=== PATIENT | female | born 1955 | race Caucasian/White ===

== ENCOUNTER 2022-02-07 22:38 | Inpatient (IN) | payer MEDICARE ==
[2022-02-07] MEDS ORDERED: SODIUM CHLORIDE 0.9% 1,000 ML IV ONE (22:57)
[2022-02-07] MEDS ORDERED: DIPH,PERTUS(ACELL)TETVAC-LF 0.5 ML VIAL IM ONE (22:59)
[2022-02-07] MEDS ORDERED: ONDANSETRON 4 MG/2 ML VIAL IVP STA (22:59)
[2022-02-07] MEDS ORDERED: MORPHINE SULFATE 4 MG/ML SYRINGE IV STA (22:59)
--- NOTE | 2022-02-07 23:09 | ED ---
Fall HPI - General Chief Complaint: Fall Stated Complaint: Fell,right arm pain Time Seen by Provider: 02/07/22 22:53 Source: patient Mode of arrival: wheelchair - History of Present Illness Initial Comments: This is a pleasant 67-year-old female who tripped and fell on outstretched right hand. Patient complaining of pain to the wrist and forearm area. Patient does have a laceration to the ulnar aspect of the forearm with some bleeding. Distal neurovascular status in intact otherwise. Injury occurred just prior to arrival. There was no head or neck injury. No headache, no fever or chills, no changes in vision or hearing, no sore throat or difficulty with speech, no neck pain, no chest pain or shortness of breath, no abdominal pain, no nausea or vomiting, no changes in urination or bowel movements, no numbness or tingling, no skin rashes or lesions. MD Complaint: fall - Related Data Allergies Allergy/AdvReac Type Severity Reaction Status Date / Time No Known Allergies Allergy Verified 02/07/22 22:44 Review of Systems ROS Statement: Those systems with pertinent positive or pertinent negative responses have been documented in the HPI. ROS Other: All systems not noted in ROS Statement are negative. Past Medical History Past Medical History: Hyperlipidemia, Hypertension History of Any Multi-Drug Resistant Organisms: None Reported Past Surgical History: Orthopedic Surgery Past Psychological History: No Psychological Hx Reported Smoking Status: Former smoker Past Alcohol Use History: Occasional Past Drug Use History: None Reported General Exam - General Exam Comments Initial Comments: Nontoxic-appearing 67-year-old female in moderate distress secondary to right arm injury. Limitations: no limitations General appearance: alert, in distress Head exam: Present: other (Patient has a superficial abrasion noted to the right supraorbital area. Normocephalic atraumatic otherwise) Eye exam: Present: normal appearance, PERRL, EOMI. Absent: scleral icterus, conjunctival injection, periorbital swelling ENT exam: Present: normal exam, mucous membranes moist, normal external ear exam. Absent: mucous membranes dry Neck exam: Present: normal inspection, full ROM. Absent: tenderness, meningismus, lymphadenopathy Respiratory exam: Present: normal lung sounds bilaterally. Absent: respiratory distress, wheezes, rales, rhonchi, stridor, chest wall tenderness, accessory muscle use, decreased breath sounds, prolonged expiratory Cardiovascular Exam: Present: regular rate, normal rhythm, normal heart sounds. Absent: systolic murmur, diastolic murmur, rubs, gallop, clicks GI/Abdominal exam: Present: soft, normal bowel sounds. Absent: distended, tenderness, guarding, rebound, rigid Extremities exam: Present: normal inspection, full ROM, normal capillary refill. Absent: tenderness, pedal edema, joint swelling, calf tenderness Right Shoulder Exam: Present: normal inspection, full ROM. Absent: tenderness, swelling Upper Arm exam: Present: normal inspection. Absent: tenderness, swelling Elbow exam: Present: normal inspection. Absent: full ROM, tenderness Forearm Wrist exam: Present: tenderness, laceration, other (Patient has a laceration to the volar aspect of the forearmdistal, appears to be consistent with an open fracture). Absent: full ROM, ecchymosis, tenderness over anatomical snuff box Hand Wrist exam: Present: tenderness, swelling, deformity, crepitus. Absent: full ROM Neuro motor exam: Present: thumb opposition intact, thumb IP flexion intact, thumb adduction intact, fingers 2-5 abduction intact Neurosensory exam: Present: radial nerve intact, ulnar nerve intact, median n erve intact Vascular: Present: normal capillary refill. Absent: vascular compromise, pulse deficit radial art, pulse deficit ulnar art Back exam: Present: normal inspection. Absent: rash noted Neurological exam: Present: alert, oriented X3, CN II-XII intact. Absent: altered, motor sensory deficit Psychiatric exam: Present: normal affect, normal mood Skin exam: Present: warm, dry, intact, normal color. Absent: rash Course Vital Signs 02/07/22 02/07/22 22:44 23:59 Temperature 97.7 F 98.0 F Pulse Rate 80 82 Respiratory 16 18 Rate Blood Pressure 155/81 152/87 O2 Sat by Pulse 98 99 Oximetry - Reevaluation(s) Reevaluation #1: 02/08/22 00:24 Patient reevaluated and states that she only has pain when she moves the arm. Denies any distal paresthesias. - Consultations Consultation #1: This case was discussed in detail with the on-call orthopedic physician, Dr. Fabian. He accepts admission patient to his service. He recommended cleaning the wound, splinting the patient, continuing prophylactic antibiotics. Patient will need orthopedic surgery in the morning. Procedures - Orthopedic Fracture Reduction Fracture #1 Consent Obtained: verbal consent Side: right Fracture Reduction Location: radius, ulna Analgesia: none Technique: finger traps Post Reduction X-rays Demonstrate: acceptable reduction Post-Reduction Neuro Exam: intact Post-Reduction Vascular Exam: intact Splint Applied: Yes Patient Tolerated Procedure: well - Orthopedic Splinting/Casting Injury #1 Side: right Upper Extremity Injury Location: long arm Upper Extremity Immobilizer: sugar tong splint Lower Extremity Immobilizer: Hany wrap, fiberglass cast Additional Comments: Seong applied, neurovascular status intact both pre-and post-application Medical Decision Making - Medical Decision Making Patient presents with isolated injury of the right wrist and forearm, consistent with open fracture. Ancef 2 g IV piggyback ordered. Tetanus ordered. Pain medication. X-rays, planned for reevaluation and orthopedic consultation Patient admitted to orthopedics, Dr. Banks. [facility] group consult for medical management. Patient will have surgery at 9 AM. Also contacted anesthesiology. Patient admitted for open fracture the right forearm. Prophylactic antibiotics were given. Ancef 2 g IV piggyback here in the ER. CT of the brain and cervical spine were negative for any acute pathology. I did review these films myself. Wounds were cleansed thoroughly with normal saline. Dressing was applied underneath the splint. Patient was placed in a sugar tong splint. Neurovascular function was intact. Patient was told to return to the ER for any signs or symptoms worsen. Told to return immediately if any other problems arise. All questions answered. Treatment plan discussed. Patient in agreement Every effort has been made to ensure accuracy of this dictation. However, due to the limitations of electronic medical records and dictation devices, errors in charting still occur. Note that the patient's previous surgery was done in 2012 at [facility] in [place] by Dr. Alessio Domingo Security Agent Dr. Infante - Lab Data Result diagrams: 02/08/22 01:02 02/08/22 01:02 Lab Results 02/08/22 02/08/22 02/08/22 Range/Units 01:01 01:02 01:02 WBC 14.8 H (3.8-10.6) k/uL RBC 4.40 (3.80-5.40) m/uL Hgb 14.0 (11.4-16.0) gm/dL Hct 41.3 (34.0-46.0) % MCV 93.8 (80.0-100.0) fL MCH 31.9 (25.0-35.0) pg MCHC 34.0 (31.0-37.0) g/dL RDW 12.7 (11.5-15.5) % Plt Count 239 (150-450) k/uL MPV 7.5 Neutrophils % 88 % Lymphocytes % 7 % Monocytes % 4 % Eosinophils % 0 % Basophils % 0 % Neutrophils # 13.0 H (1.3-7.7) k/uL Lymphocytes # 1.0 (1.0-4.8) k/uL Monocytes # 0.5 (0-1.0) k/uL Eosinophils # 0.0 (0-0.7) k/uL Basophils # 0.1 (0-0.2) k/uL PT 11.1 (9.0-12.0) sec INR 1.0 (<1.2) APTT 22.3 (22.0-30.0) sec Sodium (137-145) mmol/L Potassium (3.5-5.1) mmol/L Chloride (98-107) mmol/L Carbon Dioxide (22-30) mmol/L Anion Gap mmol/L BUN (7-17) mg/dL Creatinine (0.52-1.04) mg/dL Est GFR (CKD-EPI)AfAm (>60 ml/min/1.73 sqM) Est GFR (CKD-EPI)NonAf (>60 ml/min/1.73 sqM) Glucose (74-99) mg/dL Calcium (8.4-10.2) mg/dL Total Bilirubin (0.2-1.3) mg/dL AST (14-36) U/L ALT (4-34) U/L Alkaline Phosphatase (38-126) U/L Total Protein (6.3-8.2) g/dL Albumin (3.5-5.0) g/dL Blood Type B Negative Blood Type Confirm Blood Type Recheck No Previous Record Bld Type Recheck Status CABO Indicated Antibody Screen NEGATIVE Spec Expiration Date 02/11/2022 - 230002/08/22 02/08/22 Range/Units 01:02 01:18 WBC (3.8-10.6) k/uL RBC (3.80-5.40) m/uL Hgb (11.4-16.0) gm/dL Hct (34.0-46.0) % MCV (80.0-100.0) fL MCH (25.0-35.0) pg MCHC (31.0-37.0) g/dL RDW (11.5-15.5) % Plt Count (150-450) k/uL MPV Neutrophils % % Lymphocytes % % Monocytes % % Eosinophils % % Basophils % % Neutrophils # (1.3-7.7) k/uL Lymphocytes # (1.0-4.8) k/uL Monocytes # (0-1.0) k/uL Eosinophils # (0-0.7) k/uL Basophils # (0-0.2) k/uL PT (9.0-12.0) sec INR (<1.2) APTT (22.0-30.0) sec Sodium 142 (137-145) mmol/L Potassium 3.6 (3.5-5.1) mmol/L Chloride 110 H (98-107) mmol/L Carbon Dioxide 24 (22-30) mmol/L Anion Gap 8 mmol/L BUN 15 (7-17) mg/dL Creatinine 0.81 (0.52-1.04) mg/dL Est GFR (CKD-EPI)AfAm 86 (>60 ml/min/1.73 sqM) Est GFR (CKD-EPI)NonAf 75 (>60 ml/min/1.73 sqM) Glucose 116 H (74-99) mg/dL Calcium 8.6 (8.4-10.2) mg/dL Total Bilirubin 0.5 (0.2-1.3) mg/dL AST 23 (14-36) U/L ALT 16 (4-34) U/L Alkaline Phosphatase 86 (38-126) U/L Total Protein 6.6 (6.3-8.2) g/dL Albumin 3.9 (3.5-5.0) g/dL Blood Type Blood Type Confirm B Negative Blood Type Recheck Bld Type Recheck Status Antibody Screen Spec Expiration Date - Radiology Data Radiology results: report reviewed, image reviewed Mid shaft, displaced, angulated radius and all of fracture as described or radiology. Previous surgical hardware seen on x-ray. Critical Care Time Critical Care Time: Yes (35) Critical Care Time: Multiple calls to orthopedic specialty, anesthesiology, reevaluation patient's condition. Evaluation of patient's response to treatment. Disposition Clinical Impression: Open fracture of right forearm, Facial abrasion, Closed head injury, Abrasion, left great toe, initial encounter Disposition: ADMITTED IP TO THIS [facility] Condition: Stable Referrals: Nonstaff,Physician [Primary Care Provider] - 1-2 days Time of Disposition: 00:45 Decision to Admit Reason: Admit from EC Decision Time: 00:45
--- NOTE | 2022-02-07 23:17 | XR ---
EXAMINATION TYPE: XR forearm RT DATE OF EXAM: 02/07/2022 COMPARISON: NONE HISTORY: Pain TECHNIQUE: 2 views FINDINGS: There are transverse fractures between the middle and distal thirds of the radius and ulna. There is 100% of lateral offset of the distal fragments. Carpal bones are intact. Elbow joint appear s intact. There is plate with screws fixing an old fracture distal radius. IMPRESSION: Acute displaced fractures distal radius and ulna.
[2022-02-08] MEDS ORDERED: MORPHINE SULFATE 4 MG/ML SYRINGE IV STA (00:11)
[2022-02-08] MEDS ORDERED: SODIUM CHLORIDE 0.9% 1,000 ML IV STA (00:22)
[2022-02-08] MEDS ORDERED: MORPHINE SULFATE 4 MG/ML SYRINGE IV PRN (01:03)
[2022-02-08] MEDS ORDERED: ONDANSETRON 4 MG/2 ML VIAL IVP PRN (01:03)
[2022-02-08] MEDS ORDERED: NALOXONE 0.4 MG/ML 1 ML VIAL IV PRN (01:03)
[2022-02-08] MEDS ORDERED: BACITRACIN OINT 1 EACH PACKET TOPICAL ONE (01:08)
[2022-02-08 01:14] LABS: Basophils # (A) 0.1 k/uL (0-0.2); Basophils % (A) 0 %; Eosinophils % (A) 0 %; HCT 41.3 % (34.0-46.0); Lymphocytes % (A) 7 %; MCH 31.9 pg (25.0-35.0); MCV 93.8 fL (80.0-100.0); Mean Platelet Volume 7.5; Monocytes # (A) 0.5 k/uL (0-1.0); Monocytes % (A) 4 %; Neutrophils % (A) 88 %; Platelet Count 239 k/uL (150-450); RDW 12.7 % (11.5-15.5); WBC 14.8 k/uL (3.8-10.6)
[2022-02-08 01:24] LABS: Albumin 3.9 g/dL (3.5-5.0); Calcium 8.6 mg/dL (8.4-10.2); Potassium 3.6 mmol/L (3.5-5.1); Total Bilirubin 0.5 mg/dL (0.2-1.3); Total Protein 6.6 g/dL (6.3-8.2)
[2022-02-08 01:31] LABS: Partial Thromboplastin Time 22.3 sec (22.0-30.0); Prothrombin Time 11.1 sec (9.0-12.0)
[2022-02-08] MEDS: SODIUM CHLORIDE 0.9% 1,000 ML IV SCH ×3 (01:53→20:51)
--- NOTE | 2022-02-08 02:24 | CT ---
EXAM: CT Head Without Intravenous Contrast CLINICAL HISTORY: ITS.REASON CT Reason: Head injury/trauma TECHNIQUE: Axial computed tomography images of the head/brain without intravenous contrast. CTDI is 45.2 mGy and DLP is 1044 mGy-cm. This CT exam was performed using one or more of the following dose reduction techniques: automated exposure control, adjustment of the mA and/or kV according to patient size, and/or use of iterative reconstruction technique. COMPARISON: No previous studies. FINDINGS: Brain: Small vessel disease of aging. No hemorrhage. Ventricles: The ventricular system is age appropriate. Bones/joints: Unremarkable. No acute fracture. Soft tissues: Unremarkable. Sinuses: Visualized sinuses are unremarkable. A 1 cm polyp versus mucous retention cyst left maxillary sinus. Mastoid air cells: Mastoid air cells are well pneumatized. IMPRESSION: 1. Age-related changes. 2. No acute intracranial pathology is noted. 3. If there is concern for etiology such as early acute lacunar infarcts, MRI imaging of the brain with diffusion-weighted sequences should be performed. EXAM: CT Cervical Spine Without Intravenous Contrast CLINICAL HISTORY: ITS.REASON CT Reason: Head injury/trauma TECHNIQUE: Axial computed tomography images of the cervical spine without intravenous contrast. CTDI is 15.3 mGy and DLP is 397.6 mGy-cm. This CT exam was performed using one or more of the following dose reduction techniques: automated exposure control, adjustment of the mA and/or kV according to patient size, and/or use of iterative reconstruction technique. COMPARISON: No previous studies. FINDINGS: Vertebrae: Visualized thoracic vertebral bodies are unremarkable. Gentle dextroscoliosis. There is a normal relationship of C1 and C2. 1 cm probable bone island left lamina of the T1 vertebral body. No acute fracture. Discs/spinal canal/neural foramina: Moderate to severe degenerative disc disease of the cervical spine. Transaxial images of the cervical spine reveals posterior facet hypertrophy and disc osteophyte complexes. No spinal canal stenosis. Soft tissues: Paraspinal and regional soft tissues are within normal limits. Lung apices: Minimal scarring at the lung apices. Other findings: Spinous processes are unremarkable. IMPRESSION: 1. Degenerative disc disease. 2. No acute injury to the cervical spine is detected.
[2022-02-08] MEDS ORDERED: LACTATED RINGERS 1,000 ML IV ONE ×2 (08:28→10:02)
[2022-02-08] MEDS ORDERED: FAMOTIDINE 20 MG/2 ML VIAL IV ONE (08:28)
[2022-02-08] MEDS ORDERED: MIDAZOLAM 2 MG/2 ML VIAL IV ONE (08:30)
[2022-02-08] MEDS ORDERED: fentaNYL (PF) 50 MCG/ML 2 ML AMP IVP ONE (08:30)
--- NOTE | 2022-02-08 08:45 | P.ANPRN ---
Procedure Note - Anesthesia - Nerve Block Performed Right Axillary Single Time Out Performed: Yes ([id number]) Date of Procedure: 02/08/22 Procedure Start Time: :29 Procedure Stop Time: 08:37 Location of Patient: Phase I Indication: Acute Post-Operative Pain, Requested by Surgeon Specifically requested for management of pain by DrKaley: Олег Banks Sedation Type: Sedate with meaningful contact maintained Preparation: Sterile Prep Position: Supine Catheter: None Needle Types: Pajunk Needle Gauge: 21 Ultrasound used to visualize needle placement: Yes Ultrasound used to observe medication spread: Yes Injectate: 0.5% Ropivacaine (see comment for volume) (40cc, 10cc each ulnar, radial, median, mskcut) Blood Aspirated: No Pain Paresthesia on Injection Noted: No Resistance on Injection: Normal Image Stored and Saved: Yes Events: Uneventful and Well Tolerated
[2022-02-08] MEDS ORDERED: SODIUM CHLORIDE 0.9% (PF) 10 ML VIAL ONE (09:02)
[2022-02-08] MEDS ORDERED: ePHEDrine 50 MG/ML 1 ML VIAL ONE (09:02)
[2022-02-08] MEDS ORDERED: ONDANSETRON 4 MG/2 ML VIAL ONE (09:02)
[2022-02-08] MEDS ORDERED: MIDAZOLAM 2 MG/2 ML VIAL ONE (09:02)
[2022-02-08] MEDS ORDERED: PROPOFOL 10 MG/ML 20 ML VIAL IV ONE (09:02)
[2022-02-08] MEDS ORDERED: ROPIVACAINE 5 MG/ML 30 ML VIAL ONE (09:02)
[2022-02-08] MEDS ORDERED: fentaNYL (PF) 50 MCG/ML 2 ML AMP ONE (09:02)
[2022-02-08] MEDS ORDERED: LIDOCAINE 2% INJ 20 MG/ML (2 ML VIAL) ONE (09:02)
[2022-02-08] MEDS ORDERED: DEXAMETHASONE SOD PHOSPHATE 10 MG/ML 1 ML VIAL ONE (09:02)
[2022-02-08] MEDS ORDERED: SODIUM CHLORIDE 0.9% 100 ML with ceFAZolin 2,000 MG IV ONE ×2 (09:07)
--- NOTE | 2022-02-08 09:09 | P.HPOR ---
History of Present Illness H&P Date: 02/09/22 Chief Complaint: Open fracture both bones of the right forearm Mrs. Daley is a 67 year old female who has had previous ORIF of her distal radius using a volar plate, who fell today onto her right upper extremity and sustained a both bones forearm fracture. She states that she missed the last step of her porch and fell onto concrete. She relates a history of imbalance of several years duration that she was referred to neurology in the past but did not follow through on the appointment. The fracture is located just distal to the radius plate and there is a 1 cm wound over the ulna fracture indicating an open injury. She was brought to ER and I was consulted for further evaluation and management. She denies any other injury from this fall. Review of Systems Constitutional: Denies chills, Denies fever Ears, nose, mouth and throat: Denies headache, Denies sore throat Cardiovascular: Denies chest pain, Denies shortness of breath Respiratory: Denies cough Gastrointestinal: Denies abdominal pain, Denies diarrhea, Denies nausea, Denies vomiting Genitourinary: Denies dysuria, Denies hematuria Musculoskeletal: Reports as per HPI Musculoskeletal: right: elbow pain, elbow stiffness, elbow swelling, wrist pain, wrist stiffness, wrist swelling Integumentary: Reports as per HPI Neurological: Denies numbness Psychiatric: Denies anxiety, Denies depression Endocrine: Denies fatigue, Denies weight change Past Medical History Past Medical History: Hyperlipidemia, Hypertension History of Any Multi-Drug Resistant Organisms: None Reported Past Surgical History: Orthopedic Surgery Past Psychological History: No Psychological Hx Reported Smoking Status: Former smoker Past Alcohol Use History: Occasional Past Drug Use History: None Reported Medications and Allergies Allergies Allergy/AdvReac Type Severity Reaction Status Date / Time No Known Allergies Allergy Verified 02/07/22 22:44 Physical Examination Exam is limited to the right upper extremity. A 1 cm laceration over the ulna fracture site is noted. There is no gross contamination of this wound. The forearm is angulated with apex ulnar angulation of 30 degrees. She is able to move fingers weakly and denies numbness or tingling in the fingers. A well healed volar incision is noted over the distal radius from presumable previous fixation of distal radius fracture. Elbow is nontender and without deformity. Hand has less than 2 sec capillary refill and good color. Results X-rays taken in the ER show an angulated and displaced fracture of the radial and ulnar shafts with soft tissue disruption around the ulnar fracture. The distal radius plate is in good position with 5 screws, the current fracture of the radius is just distal to this plate. Bone structure is within normal limits. - Labs Result Diagrams: 02/08/22 01:02 02/08/22 01:02 Assessment and Plan (1) Open fracture of forearm, type I or II Narrative/Plan: 1. Patient has been informed that optimal treatment is with surgery for irrigation of the wound within 24 hours, operative reduction and fixation which will require removal of the distal radius plate, preliminary cleansing of the wound in the ER, splint application and antibiotics. The operation will be performed in the morning. We have discussed risks and potential complications of this operation which are inclusive of, but not limited to: bleeding, in fection, scarring, discomfort, blood vessel and/or nerve damage, need for further surgery, malunion, nonunion, stiffness, hardware failure, further fracture, difficulty removing old plate, anesthesia risks, compartment syndrome, complex regional pain syndrome, loss of limb, , and other risks. She wishes to proceed and a consent form will be signed. 2. Patient will receive intravenous antibiotics (Kefzol 2 grams) in the ER and 2 more doses prior to discharge. Tetanus status was updated with administration of vaccine in the ER. 3. All questions from the patient and her were answered. Current Visit: Yes Status: Acute Priority: High Code(s): S52.90XB - UNSP FRACTURE OF UNSP FOREARM, INIT FOR OPN FX TYPE I/2 SNOMED Code(s): 18351656 Time with Patient: Less than 30
[2022-02-08] MEDS ORDERED: ceFAZolin 3,000 MG in SODIUM CHLORIDE 0.9% IRRIGATIO 3,000 ML IRRIGATION ONE (09:31)
--- NOTE | 2022-02-08 12:54 | P.OP ---
Date of Procedure: 02/08/22 Procedure(s) Performed: PREOPERATIVE DIAGNOSES: 1. Right forearm radial and ulnar shaft fractures 2. Grade I open fracture ulnar shaft 3. Status post 2013 distal radius fracture fixation with volar plate POSTOPERATIVE DIAGNOSES: 1. Right forearm radial and ulnar shaft fractures, comminuted and displaced 2. Grade I open fracture ulnar shaft 3. Status post 2013 distal radius fracture fixation with volar plate PROCEDURES PERFORMED: 1. Right forearm radial and ulnar shaft fractures open reduction and internal fixation 2. Irrigation of open fracture wound of ulnar fracture 3. Removal of distal radial volar plate ANESTHESIA: Gen. and regional block for post operative pain control WHITE SPOOLER: None COMPLICATIONS: None ESTIMATED BLOOD LOSS: 100 mL. DISPOSITION: To post-anesthesia care unit INDICATIONS: Umm is a 67 -year-old female who sustained a left forearm both taisha moira forearm fracture last night. She has a less than 1 cm wound over the ulnar fracture site indicating a inside out type injury amounting to a grade 1 open fracture. She received intravenous antibiotics in the emergency room along with local wound care including irrigation and initially in the ER. Today she comes to the operating room for definitive management of the fractures and formal irrigation and debridement of the wound. The patient has minimal symptoms relating to the elbow or wrist. I described the steps of the operation and potential risks and complications as being inclusive of, but not limited to: Bleeding, infection, scarring, discomfort, blood vessel and/or nerve damage, malunion, nonunion, stiffness, weakness, hardware irritation, nerve palsy, and other risks, please see the preoperative dictation for further discussion. The patient is aware these risks and wishes to proceed with surgery. The consent form has been signed. PROCEDURE: After appropriate consent was obtained, the patient was taken to the operating room placed in the supine position. Anesthesia was initiated, and after confirmation of adequate anesthesia, the patient was carefully positioned. Regional anesthetic block was given preoperatively. Care was taken to make sure that all pressure points were adequately padded. Prepping and draping were completed in the usual aseptic fashion using chlorhexidine prep. Timeout was called, confirming patient identity, side, procedure, and administration of antibiotics. The open fracture wound was addressed first by making an incision on either side of the open fracture wound and exposing the area better for irrigation. Pulse lavage was performed approximately 1.5 L in and around the fracture site and wound. The wound was noncontaminated and appeared to the typical inside out type injury. Severe comminution of the ulnar shaft fracture was noted however. The wound had a moist sponge placed and attention was then directed to the r adius. The limb was examined with an Esmarch bandage and the tourniquet was inflated to 250 mmHg. An incision was created on the volar aspect of the forearm distally following the course of the previous incision for fracture fixation. This was obviously extended more proximally for full exposure of the fracture site. Incision was carried down through skin into subcu used tissues and down to muscular fascia. Flexor carpi radialis tendon was noted and dissected free of the scar tissue containing the radial artery and veins. The pronator quadratus muscle was identified and released on its radial side allowing access to the distal radius and plate. Bone had grown around the plate nearly circumferentially. Meticulous dissection around the plate with small osteotomes was performed until plate was disengaged. The plate was removed without complication although this took approximately 30 minutes of tourniquet time. The volar surface of the radius was then smoothed using combination of rasp and Norbert. The radial fracture was also comminuted with a thin butterfly fragment on the radial dorsal side which was too small for a interfragmentary screw. Therefore, the fracture was reduced after clearance of the fracture site of hematoma and a recon type plate was then minimally contoured and applied to the volar aspect of the radius. 6 screws were placed 3 in the proximal fragment and 3 in the distal fragment. The butterfly fragment was captured with the use of a cerclage #2 FiberWire suture. Anatomic reduction was performed as confirmed with mini C-arm imaging. Screw lengths appeared adequate. All screws had excellent purchase however the most distal screw was near a previous plate screw and therefore this was switched to a locking screw. Tourniquet was then deflated and hemostasis was obtained with electrocautery, and careful closure of the subcutaneous tissues and skin was performed using 3-0 Vicryl in the subcu and 4-0 nylon horizontal mattress sutures for the skin. Attention was then directed to the ulnar fracture site. Closure of the radial exposure took approximately 15-17 minutes and therefore this allowed for adequate reperfusion time. The tournique t was then reinflated after exsanguination of the limb and the ulnar fracture was then further exposed and further irrigated with another liter of normal saline in pulsatile fashion. The saline contained cefazolin at the rate of 1 g/L. There were approximately 5 pieces of the ulna at the fracture site indicating a highly comminuted fracture. These pieces all were too small for individual fixation to each other or to the proximal or distal segments. Therefore, a one third tubular plate was utilized to bridge this fracture site and the fracture fragments were brought together provisionally using a #2 FiberWire in cerclage fashion. The one third tubular plate was then utilized across the fracture site and 3 fully threaded cortical screws were placed proximally and distally across the fracture site to bridge the fracture. For further fixation, 2 more [id number] #2 FiberWire cerclage sutures were placed around the comminuted segment of the ulna and around the plate for additional stabilization. The area was then additionally irrigated with normal saline containing cefazolin. Hemostasis was obtained using electrocautery after deflation of the tourniquet. Closure was performed with 2-0 Vicryl suture in the subcutaneous tissues and 4-0 mattress nylon sutures in horizontal fashion. Well molded and padded posterior splint was applied. Patient tolerated the procedure well and taken to recovery room in stable condition. Sponge and needle counts were correct.
[2022-02-08] MEDS: amLODIPine 5 MG TAB PO SCH (16:56)
--- NOTE | 2022-02-08 17:21 | CONS ---
CONSULTATION DATE OF SERVICE: 02/08/2022 REASON FOR CONSULTATION: Advice regarding hypertension and multiple medical issues, requested by Orthopedic Surgery. HISTORY OF PRESENT ILLNESS: This 67-year-old woman with a past medical history of hypertension and hyperlipidemia accidentally missed a step and suffered a right forearm radial and ulnar fracture, which was treated with ORIF by Orthopedic Surgery. The patient also had contusion of the head. CT scan reported no acute abnormality. There is no history of any fever, rigor or chills at this time. PAST MEDICAL HISTORY: Hypertension, hyperlipidemia. HOME MEDICATIONS: Reviewed. They include Norvasc 5 mg daily. ALLERGIES: NONE. FAMILY HISTORY: No history of heart disease or strokes in the family. SOCIAL HISTORY: Previous history of smoking. REVIEW OF SYSTEMS: Fourteen-point review of systems negative except as mentioned earlier. PHYSICAL EXAMINATION: Pulse is 67, blood pressure 144/70, respirations 17. HEENT: Conjunctivae normal. NECK: No jugular venous distention. CARDIOVASCULAR: S1, S2 muffled. RESPIRATION: Breath sounds diminished at the bases. No rhonchi. No crackles. ABDOMEN: Soft, nontender. LEGS: No edema. No swelling. NERVOUS SYSTEM: No focal deficit. SKIN: No ulcer, rash, bleeding. JOINTS: No active deforming arthropathy. Right arm is status post fracture and repair. LABS: Noted. WBC 14.8. ASSESSMENT: 1. Status post right forearm fracture and ORIF. 2. Hypertension. 3. Hyperlipidemia. RECOMMENDATIONS AND DISCUSSION: In this 67-year-old woman who presented with multiple medical issues, we will monitor the patient closely, continue the current medications. Repeat labs in the morning. UA with micro. DVT prophylaxis. Incentive spirometry. Resume the home medications. Will follow the patient closely with you. Further recommendations to follow. MMODL / IJN: [id number] /
[2022-02-08] MEDS ORDERED: ATORVASTATIN 10 MG TAB PO SCH (21:45)
[2022-02-09] MEDS: SODIUM CHLORIDE 0.9% 1,000 ML IV SCH ×2 (03:01→07:36)
[2022-02-09] MEDS: amLODIPine 5 MG TAB PO SCH (07:36)
[2022-02-09 07:47] VITALS: BP 121/64; PULSE 62; RESP 18; TEMP 98.7
--- NOTE | 2022-02-09 09:38 | P.DS ---
Providers Date of admission: 02/08/22 03:03 Expected date of discharge: 02/09/22 Attending physician: Олег Banks Consults: 02/08/22 01:03 Consult Physician Urgent Consulting Provider: Magy Luu Consult Reason/Comments: Medical management Do you want consulting provider notified?: Yes Primary care physician: Physician Nonstaff - Discharge Diagnosis(es) (1) Open fracture of forearm, type I or II Current Visit: Yes Status: Acute Priority: High (2) Open fracture of right forearm Current Visit: Yes Status: Acute Hospital Course: Mrs. Daley is a 67 year old female who has had previous ORIF of her distal radius using a volar plate, who fell on 02/08/2022 onto her right upper extremity and sustained a both bones forearm fracture. She states that she missed the last step of her porch and fell onto concrete. She relates a history of imbalance of several years duration that she was referred to neurology in the past but did not follow through on the appointment. The fracture is located just distal to the radius plate and there is a 1 cm wound over the ulna fracture indicating an open injury. She was brought to ER and I was consulted for further evaluation and management. She denies any other injury from this fall. She was taken to surgery on 02/08/2022 for irrigation and debridement, removal of hardware and ORIF both bone forearm fractures. She is doing well on postoperative day #1. She may be discharged to home today. Please see med rec for accurate list of home medications. Patient Condition at Discharge: Stable Plan - Discharge Summary Discharge Rx Participant: Yes New Discharge Prescriptions: New Cephalexin [Keflex] 500 mg PO Q8HR #21 cap HYDROcodone/APAP 7.5-325MG [[place] 7.5-325] 1 - 2 tab PO Q6HR PRN #32 tab PRN Reason: Pain Sennosides-Docusate Sodium [Senokot-S] 1 tab PO BID #60 tablet No Action amLODIPine [Norvasc] 5 mg PO DAILY Atorvastatin [Lipitor] 10 mg PO DAILY Alendronate Sodium 70 mg PO Q7D Discharge Medication List Alendronate Sodium 70 mg PO Q7D 02/08/22 [History] Atorvastatin [Lipitor] 10 mg PO DAILY 02/08/22 [History] amLODIPine [Norvasc] 5 mg PO DAILY 02/08/22 [History] Cephalexin [Keflex] 500 mg PO Q8HR #21 cap 02/09/22 [Rx] HYDROcodone/APAP 7.5-325MG [[place] 7.5-325] 1 - 2 tab PO Q6HR PRN #32 tab 02/09/22 [Rx] Sennosides-Docusate Sodium [Senokot-S] 1 tab PO BID #60 tablet 02/09/22 [Rx] Follow up Appointment(s)/Referral(s): Nonstaff,Physician [Primary Care Provider] - 1-2 days Олег Banks MD [STAFF PHYSICIAN] - 1 Week Activity/Diet/Wound Care/Special Instructions: keep splint intact. Ice and elevate extremity. Discharge Disposition: HOME SELF-CARE
[2022-02-09 11:58] LABS: Basophils # (A) 0.03 X 10*3/uL (0.00-0.10); Basophils % (A) 0.2 %; Eosinophils # (A) 0.01 X 10*3/uL (0.04-0.35); Eosinophils % (A) 0.1 %; HCT 38.4 % (37.2-46.3); HGB 12.4 g/dL (12.0-15.0); Immature Grans, Automated 0.3 %; Lymphocytes # (A) 1.84 X 10*3/uL (0.90-5.00); Lymphocytes % (A) 13.9 %; MCH 31.1 pg (27.0-32.0); MCHC 32.3 g/dL (32.0-37.0); MCV 96.2 fL (80.0-97.0); Mean Platelet Volume 10.5 fL (9.5-12.2); Monocytes # (A) 0.77 X 10*3/uL (0.20-1.00); Monocytes % (A) 5.8 %; NRBC Per 100 WBC 0 /100 WBCS (0.0-0.0); Neutrophils # (A) 10.52 X 10*3/uL (1.80-7.70); Neutrophils % (A) 79.7 %; Platelet Count 229 X 10*3/uL (140-440); RBC 3.99 X 10*6/uL (4.10-5.20); RDW 12.8 % (11.5-14.5); WBC 13.21 X 10*3/uL (4.50-10.00)
--- NOTE | 2022-02-09 17:45 | P.PN ---
Subjective Progress Note Date: 02/09/22 This is a 67 year old female admitted under orthopedic services for surgical repair of a recent fall and had right forearm radial and ulnar fracture and is status post ORIF. Patient has been cleared by orthopedics for outpatient follow and sling to the right upper extremity noted. Patient is afebrile and denies chest pain or shortness of breath. Patient is anxious to be discharged. [facility] Patient has hypertension history. Encouraged incentive spirometer use in the outpatient setting. Review of systems: Constitutional: No reports of fatigue, fever, or chills Cardiovascular: No reports of chest pain or palpitations Respiratory: No reports of shortness of breath or cough GI: No reports of nausea, no reports of of vomiting, no reports of diarrhea : No reports of dysuria or retention Neurovascular: no reports of generalized weakness, reports some right upper arm tenderness,but manageable. All medications have been reviewed PHYSICAL EXAMINATION: GENERAL: The patient is alert and oriented x4, Well developed, well nourished. Obese. HEENT: Pupils are round and equally reacting to light. EOMI. no scleral icterus. No conjunctival pallor. Normocephalic, atraumatic. No pharyngeal erythema. No thyromegaly. CARDIOVASCULAR: S1 and S2 muffled PULMONARY: diminished breath sounds bilaterally with no wheezing or rhonchi noted. ABDOMEN: soft. non tender on exam. Obese. non-distended, normal bowel sounds. No palpable organomegaly. MUSCULOSKELETAL: No joint swelling or deformity. EXTREMITIES: No cyanosis, clubbing, or pedal edema. right arm casting and sling noted. positive cap refill <3 sec and able to move fingers NEUROLOGICAL: Gross neurological examination did not reveal any focal deficits. SKIN: No rashes. Assessment: Status post right forearm fracture and ORIF Hyperlipidemia Hypertension Multiple medical issues GI prophylaxis DVT prophylaxis Full code Plan: Recommend to continue with current medications and management and patient is status post ORIF of the right for ulnar and radial fracture after a fall. Sling noted and encouraged the patient to follow up with pcp in [place] on discharge and also follow up with orthopedics as scheduled. Recommending elevating the right upper extremity while at rest. IS ordered and encouraged to use at least 10 times per hour. Thank you for this consultation. Patient is being discharged today. The impression and plan of care has been dictated by Shefali Motley, nurse practitioner as directed. MD Masood I have performed a history and examination and MDM of this patient, discussed the same with the dictator, and agree with the dictator's assessment and plan as written ,documented as a scribe. Based on total visit time, I have performed more than 50% of the visit. Any additional findings or plans will be noted. Objective - Vital Signs Vital signs: Vital Signs Temp 98.7 F 02/09/22 07:46 Pulse 62 02/09/22 07:46 Resp 18 02/09/22 08:00 BP 121/64 02/09/22 07:46 Pulse Ox 97 02/09/22 08:33 FiO2 Intake & Output 02/08/22 02/09/22 02/09/22 18:59 06:59 18:59 Intake Total 1601 Output Total 100 Balance 1501 Intake: IV 1601 Output: Estimated Blood Loss 100 Other: # Voids 5 3 # Bowel Movements 1 - Labs CBC & Chem 7: 02/09/22 06:51 02/08/22 01:02
== END 2022-02-09 11:58 | disposition home or self-care (01) | DRG 497 ==
LOC: EC 22:38 → 4SSUR 02-08 03:03
PROVIDERS: ADMIT Orthopaedic Surgery; ATTEND Orthopaedic Surgery
PROC: 3E0234Z Introduction of Serum, Toxoid and Vaccine into Muscle, Percutaneous Approach (ICD-10-PCS; 2022-02-07)
PROC: 0PSHXZZ Reposition Right Radius, External Approach (ICD-10-PCS; 2022-02-07)
PROC: 0PSKXZZ Reposition Right Ulna, External Approach (ICD-10-PCS; 2022-02-07)
PROC: 0PSH04Z Reposition Right Radius with Internal Fixation Device, Open Approach (ICD-10-PCS; principal; 2022-02-08 09:00)
PROC: 0PPH04Z Removal of Internal Fixation Device from Right Radius, Open Approach (ICD-10-PCS; principal; 2022-02-08 09:00)
PROC: 0PSK04Z Reposition Right Ulna with Internal Fixation Device, Open Approach (ICD-10-PCS; principal; 2022-02-08 09:00)
DX: S52.501B Unspecified fracture of the lower end of right radius, initial encounter for open fracture type I or II (principal); S52.601B Unspecified fracture of lower end of right ulna, initial encounter for open fracture type I or II; E78.5 Hyperlipidemia, unspecified; Z23 Encounter for immunization; Z28.310 Unvaccinated for COVID-19; S00.81XA Abrasion of other part of head, initial encounter; S90.412A Abrasion, left great toe, initial encounter; S00.83XA Contusion of other part of head, initial encounter; I10 Essential (primary) hypertension; Z79.899 Other long term (current) drug therapy; Z87.891 Personal history of nicotine dependence; Z47.2 Encounter for removal of internal fixation device; Z96.631 Presence of right artificial wrist joint; Z71.85 Encounter for immunization safety counseling; W01.0XXA Fall on same level from slipping, tripping and stumbling without subsequent striking against object, initial encounter
CPT/HCPCS: 25565; 36415; 64415; 70450; 72125; 76942; 80053; 85025; 85610; 85730; 86850; 86900; 86901; 90471; 90715; 93005; 94760; 96361; 96365; 96375; 96376; 99291